=== PATIENT | male | born 1950 | race Caucasian/White ===

== ENCOUNTER → 2019-09-09 15:29 | Outpatient (BNVA) | payer MEDICARE, SELFPAY | PROVIDERS: Family Provider Nurse Practitioner Family; PCP Family Medicine; Visit Provider Nurse Practitioner Family | DX: M70.31 Other bursitis of elbow, right elbow (principal); E11.9 Type 2 diabetes mellitus without complications | CPT/HCPCS: 83036 ==

== ENCOUNTER → 2019-12-29 15:13 | Outpatient (BNVA) | payer MEDICARE, SELFPAY | PROVIDERS: PCP Family Medicine; Referring Provider Nurse Practitioner Family; Visit Provider Orthopaedic Surgery | DX: M25.521 Pain in right elbow (principal) | CPT/HCPCS: 73080 ==

== ENCOUNTER 2019-12-29 16:30 | Outpatient (CLI) | payer MEDICARE, SELFPAY | END 2019-12-29 16:31 | disposition home or self-care (01) | LOC: SPT 16:31 | PROVIDERS: PCP Family Medicine; Visit Provider Orthopaedic Surgery | DX: Z46.89 Encounter for fitting and adjustment of other specified devices (principal); G56.03 Carpal tunnel syndrome, bilateral upper limbs | CPT/HCPCS: L3908 ==

== ENCOUNTER 2020-04-05 10:32 | Outpatient (CLI) | payer MEDICARE, SELFPAY ==
--- NOTE | 2020-04-05 10:43 | MR_ITS ---
WS: [id number] MRI LEFT SHOULDER HISTORY: PAIN IN RIGHT SHOULDER COMPARISON: None available. TECHNIQUE: Multiplanar sequences of the shoulder joint are submitted. Marked bone and soft tissue hypertrophy at the AC joint. Osteophytes encroach upon the supraspinatus muscle. There is edema in the distal clavicle and adjacent acromion with osteophyte formation. Small amount of fluid in the subacromial and subdeltoid bursa. No os acromion. Biceps tendon is in normal p osition. Slightly high riding humeral head. Moderate tendinopathy in the mid to distal supraspinatus tendon. S mall insertion site tear of the infraspinatus tendon. No subscapularis tendon tear although there is tendinopathy. There is moderate narrowing of the coracohumeral interval. No muscle atrophy or edema. There is a small fluid collection or cyst in the subscapularis recess. Anterior superior labrum contains abnormal signal. Most significant abnormal signal extends to the an terior labrum. MR/MR shoulder LT wo con* [id number] IMPRESSION: 1. 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 2. Moderate tendinopathy subscapularis and supraspinatus tendons. 3. Small insertion site tear infraspinatus tendon. 4. Torn anterior superior labrum. 5. 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
== END 2020-04-05 10:33 | disposition home or self-care (01) ==
LOC: RADSHAW 10:41
PROVIDERS: PCP Nurse Practitioner Family; Visit Provider Nurse Practitioner Family
DX: M19.012 Primary osteoarthritis, left shoulder (principal); S46.012A Strain of muscle(s) and tendon(s) of the rotator cuff of left shoulder, initial encounter; S43.432A Superior glenoid labrum lesion of left shoulder, initial encounter; X58.XXXA Exposure to other specified factors, initial encounter
CPT/HCPCS: 73221

== ENCOUNTER → 2020-04-24 14:20 | Outpatient (BNVA) | payer MEDICARE, SELFPAY | PROVIDERS: PCP Nurse Practitioner Family; Referring Provider Nurse Practitioner Family; Visit Provider Orthopaedic Surgery | DX: M25.511 Pain in right shoulder (principal); M25.512 Pain in left shoulder; M75.02 Adhesive capsulitis of left shoulder | CPT/HCPCS: 73030 ==

== ENCOUNTER 2020-05-03 06:00 | Outpatient (RCR) | payer MEDICARE, SELFPAY | END 2020-05-17 23:00 | disposition home or self-care (01) | LOC: TPT 06:00 | PROVIDERS: PCP Nurse Practitioner Family; Referring Provider Orthopaedic Surgery; Visit Provider Orthopaedic Surgery | DX: M25.512 Pain in left shoulder (principal); M25.511 Pain in right shoulder; M75.02 Adhesive capsulitis of left shoulder | CPT/HCPCS: 97161 ==

== ENCOUNTER → 2020-06-06 12:49 | Outpatient (BNVA) | payer MEDICARE, SELFPAY | PROVIDERS: Family Provider Nurse Practitioner Family; Visit Provider Specialist | DX: G56.22 Lesion of ulnar nerve, left upper limb (principal); G62.9 Polyneuropathy, unspecified | CPT/HCPCS: G0463 ==

== ENCOUNTER → 2020-06-08 12:44 | Outpatient (BNVA) | payer MEDICARE, SELFPAY | PROVIDERS: Family Provider Nurse Practitioner Family; Visit Provider Nurse Practitioner Family | DX: I10 Essential (primary) hypertension (principal); E11.9 Type 2 diabetes mellitus without complications; E78.5 Hyperlipidemia, unspecified | CPT/HCPCS: 80053; 80061; 83036; 85025 ==

== ENCOUNTER → 2020-06-27 11:59 | Outpatient (BNVA) | payer MEDICARE, SELFPAY | PROVIDERS: Family Provider Nurse Practitioner Family; Visit Provider Nurse Practitioner Family | DX: R53.82 Chronic fatigue, unspecified (principal); R73.9 Hyperglycemia, unspecified; G47.33 Obstructive sleep apnea (adult) (pediatric); I10 Essential (primary) hypertension; Z68.34 Body mass index [BMI] 34.0-34.9, adult; F17.211 Nicotine dependence, cigarettes, in remission; Z71.89 Other specified counseling | CPT/HCPCS: 80053; 82306; 82607; 83036; 84443; 85025 ==

== ENCOUNTER → 2020-10-24 11:16 | Outpatient (BNVA) | payer MEDICARE, SELFPAY | PROVIDERS: Family Provider Nurse Practitioner Family; Visit Provider Nurse Practitioner Family | DX: M25.551 Pain in right hip (principal); M25.552 Pain in left hip; G62.9 Polyneuropathy, unspecified | CPT/HCPCS: 72100; 73523 ==

== ENCOUNTER 2020-11-01 06:00 | Outpatient (RCR) | payer MEDICARE, SELFPAY | END 2020-11-22 23:00 | disposition home or self-care (01) | LOC: TPT 06:00 | PROVIDERS: Family Provider Nurse Practitioner Family; PCP Nurse Practitioner Family; Referring Provider Nurse Practitioner Family; Visit Provider Nurse Practitioner Family | DX: M25.551 Pain in right hip (principal); M25.552 Pain in left hip; M54.5 Low back pain | CPT/HCPCS: 97110; 97161 ==

== ENCOUNTER → 2021-07-04 11:36 | Outpatient (BNVA) | payer MEDICARE, SELFPAY | PROVIDERS: Family Provider Nurse Practitioner Family; PCP Nurse Practitioner Family; Visit Provider Nurse Practitioner Family | DX: E11.9 Type 2 diabetes mellitus without complications (principal); G62.9 Polyneuropathy, unspecified; I10 Essential (primary) hypertension; Z12.5 Encounter for screening for malignant neoplasm of prostate; Z23 Encounter for immunization; M54.41 Lumbago with sciatica, right side; M54.42 Lumbago with sciatica, left side; G89.29 Other chronic pain; R59.0 Localized enlarged lymph nodes; G47.33 Obstructive sleep apnea (adult) (pediatric); E55.9 Vitamin D deficiency, unspecified | CPT/HCPCS: 80053; 80061; 82306; 82607; 83036; 83721; 84443; 85025; G0103 ==

== ENCOUNTER → 2021-07-17 14:24 | Outpatient (BNVA) | payer MEDICARE, SELFPAY | PROVIDERS: PCP Nurse Practitioner Family; Visit Provider Nurse Practitioner Family | DX: D72.819 Decreased white blood cell count, unspecified (principal) | CPT/HCPCS: 85025 ==

== ENCOUNTER 2021-07-18 14:51 | Outpatient (CLI) | payer MEDICARE, SELFPAY ==
--- NOTE | 2021-07-18 15:15 | MR_ITS ---
WS: [id number] MRI LUMBAR SPINE NONCONTRAST TECHNIQUE: Sagittal T1, T2 and STIR imaging. Axial T1 and T2 imaging. CLINICAL INFORMATION: M54.50 - Low back pain, unspecified COMPARISON: MRI 2016 FINDINGS: Mild lumbar curve. No acute compression. No high-grade central canal stenosis. Slight anterolisthesis L4 on L5. Congenital central canal stenosis contributes to spinal canal narrowing. L1-L2: Moderate left facet arthropathy impinges the left subarticular recess. Mild central canal sten osis. Moderate facet arthropathy. Mild left and no significant right foraminal narrowing. L2-L3: Mild annular bulging. Mild central canal stenosis. Moderate facet arthropathy. Mild left agnes inal narrowing. L3-L4: Mild annular bulging with mild central canal stenosis. Moderate facet arthropathy with ligamen xander flavum flavum hypertrophy. Mild right and no significant left foraminal narrowing. L4-L5: Slight anterolisthesis. Mild annular bulging with impingement on the subarticular recess bilat erally and traversing L5 nerve roots. Moderate to severe central canal stenosis. Moderate facet arthr opathy with ligamentum flavum flavum hypertrophy. Moderate left and mild right foraminal narrowing. I mpingement on the exiting left L4 nerve root. L5-S1: Shallow central protrusion with mild central canal stenosis. Slight impingement traversing S1 nerve roots bilaterally. Mild right greater than left foraminal narrowing. Mild central canal stenosis in the cervical spine at C2-C4 with slight indentation on the cervical co rd. MR/MR lumbar spine wo con* [id number] IMPRESSION:Congenital central canal stenosis contributes to spinal canal narrow ing 1. Severe central canal stenosis L4-5 due to disc bulging with facet arthropat hy and ligament flavum hypertrophy. Impingement traversing L5 nerve roots bilat erally. Moderate left and mild right foraminal narrowing. This appears progress ed since 2016. 2. Mild disc bulging and osteophytic ridging L5-S1 with slight impingement tra versing S1 nerve roots bilaterally. Mild right greater than left foraminal narr owing. 3. Mild central canal stenosis L2-3 and L3-4. 4. Prominent left facet arthropathy L1-2 impinges the left subarticular recess at this level with mild left foraminal narrowing. This is new since 2016. 5. Mild central canal stenosis in the cervical spine at C2-C4 with prominent p osterior longitudinal ligament and slight indentation on the cervical cord. Thi s can be followed up with cervical spine MRI.
== END 2021-07-18 14:52 | disposition home or self-care (01) ==
LOC: RADSHAW 14:52
PROVIDERS: PCP Nurse Practitioner Family; Visit Provider Nurse Practitioner Family
DX: M48.061 Spinal stenosis, lumbar region without neurogenic claudication (principal); M48.02 Spinal stenosis, cervical region; M47.816 Spondylosis without myelopathy or radiculopathy, lumbar region; M51.27 Other intervertebral disc displacement, lumbosacral region
CPT/HCPCS: 72148

== ENCOUNTER → 2021-08-09 13:20 | Outpatient (BNVA) | payer MEDICARE, SELFPAY | PROVIDERS: PCP Nurse Practitioner Family; Referring Provider Nurse Practitioner Family; Visit Provider Orthopaedic Surgery | DX: M54.41 Lumbago with sciatica, right side (principal); G89.29 Other chronic pain | CPT/HCPCS: 72110 ==

== ENCOUNTER → 2022-08-05 11:21 | Outpatient (BNVA) | payer MEDICARE, SELFPAY | PROVIDERS: PCP Nurse Practitioner Family; Visit Provider Nurse Practitioner Family | DX: M10.9 Gout, unspecified (principal); E11.9 Type 2 diabetes mellitus without complications; E55.9 Vitamin D deficiency, unspecified; L98.9 Disorder of the skin and subcutaneous tissue, unspecified; Z00.00 Encounter for general adult medical examination without abnormal findings; Z12.5 Encounter for screening for malignant neoplasm of prostate; I10 Essential (primary) hypertension; G47.33 Obstructive sleep apnea (adult) (pediatric) | CPT/HCPCS: 80053; 80061; 82043; 82306; 82607; 83036; 83721; 83735; 84443; 84550; 85025 ==

== ENCOUNTER → 2023-05-21 10:53 | Outpatient (BNVA) | payer MEDICARE, SELFPAY | PROVIDERS: PCP Nurse Practitioner Family; Visit Provider Nurse Practitioner Family | DX: L82.1 Other seborrheic keratosis (principal); D22.5 Melanocytic nevi of trunk; L57.8 Other skin changes due to chronic exposure to nonionizing radiation; Z85.820 Personal history of malignant melanoma of skin; L82.0 Inflamed seborrheic keratosis; L57.0 Actinic keratosis | CPT/HCPCS: 17000; 17110; 99213 ==

== ENCOUNTER → 2023-07-21 16:37 | Outpatient (BNVA) | payer MEDICARE, SELFPAY | PROVIDERS: PCP Nurse Practitioner Family; Visit Provider Nurse Practitioner Family | DX: E11.9 Type 2 diabetes mellitus without complications (principal); M10.9 Gout, unspecified; E55.9 Vitamin D deficiency, unspecified; M79.672 Pain in left foot; I10 Essential (primary) hypertension | CPT/HCPCS: 80053; 80061; 82306; 82607; 83036; 83721; 83735; 84443; 84550; 85025 ==

== ENCOUNTER → 2023-10-27 12:18 | Outpatient (BNVA) | payer MEDICARE, SELFPAY | PROVIDERS: PCP Nurse Practitioner Family; Visit Provider Nurse Practitioner Family | DX: M10.9 Gout, unspecified (principal); E78.5 Hyperlipidemia, unspecified; E55.9 Vitamin D deficiency, unspecified | CPT/HCPCS: 80061; 82306; 84550 ==

== ENCOUNTER → 2024-05-31 09:13 | Outpatient (BNVA) | payer MEDICARE, SELFPAY | PROVIDERS: PCP Nurse Practitioner Family; Visit Provider Nurse Practitioner Family | DX: I10 Essential (primary) hypertension (principal); E11.9 Type 2 diabetes mellitus without complications; E55.9 Vitamin D deficiency, unspecified | CPT/HCPCS: 80053; 80061; 82306; 83036; 84550; 85025 ==

== ENCOUNTER → 2024-09-02 14:05 | Outpatient (BNVA) | payer MEDICARE, SELFPAY | PROVIDERS: PCP Nurse Practitioner Family; Referring Provider Nurse Practitioner Family; Visit Provider Nurse Practitioner Family | DX: L24.9 Irritant contact dermatitis, unspecified cause (principal); L30.4 Erythema intertrigo; D23.71 Other benign neoplasm of skin of right lower limb, including hip; D48.5 Neoplasm of uncertain behavior of skin | CPT/HCPCS: 11102; 99214 ==

== ENCOUNTER 2025-02-03 12:19 | Outpatient (CLI) | payer MEDICARE, SELFPAY ==
--- NOTE | 2025-02-03 13:00 | MR_ITS ---
WS: [id number] MRI CERVICAL SPINE NONCONTRAST HISTORY: M54.2 - Cervicalgia COMPARISON: None available. Technique: Multiplanar, multisequence noncontrast imaging of the cervical spine. Straightening of the normal cervical lordosis. Complete fusion between the C5-6 and C6-7 vertebral bodies. No marrow edema or fracture. Increased T2 signal in the cervical cord at the C3 level. Lesser amount of increased signal extends above and below the C3 level. There is additional focal increased T2 signal at the C4-5 disc level. Cord is slightly narrowed and atrophy at the C3 level. Craniocervical junction, C1 and C2 relationship, odontoid process and soft tissues are normal. C2-C3: Lobulated central disc protrusion effacing CSF. Small bilateral foraminal osteophytes. Moderate central and mild foraminal stenosis. C3-C4: Contiguous low signal proceeds posterior to the C2-3 disc level posterior to C3. This may be a large ligamentous ossification. Diffuse annular disc bulging with effacement of CSF. Moderate central and bilateral foraminal stenosis. C4-C5: Disc osteophyte encroaching upon the ventral thecal sac. Central disc protrusion. Moderate bilateral facet arthritis. Large foraminal osteophytes. Severe central and bilateral foraminal stenosis. C5-C6: No stenosis. C6-C7: Mild foraminal narrowing predominantly due to facet disease and osteophytes. C7-T1: Bilateral foraminal osteophytes. Severe LEFT and moderate to severe RIGHT foraminal stenosis. Facet joint arthropathy encroaches upon the posterior LEFT thecal sac. T1-2: Marked ligamentum flavum and facet arthritis encroaching posteriorly upon the thecal sac. Mild stenosis centrally with moderate bilateral foraminal stenosis. Soft tissue mass following fat on all sequences in the posterior neck centered at the C3-4 level. Mass measures 3.8 x 5.3 cm. MR/MR cervical spin wo con* [id number] IMPRESSION: 1. Mild cord atrophy at the C3 level. 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 2. Multilevel areas of central and foraminal stenosis due to combination of di sc, osteophyte and facet arthritis. 3. Prior cervical fusion at C5-6 and C6-7. 4. Moderate central and mild foraminal stenosis at C2-3 due to disc and osteop hyte disease. 5. C3-4: Moderate central and bilateral foraminal stenosis. Low signal posteri or to C3 and C4 may be ossification site or calcification or disc protrusions. 6. C4-5: Severe central and bilateral foraminal stenosis. 7. C7-T1: Severe LEFT and moderate to severe RIGHT foraminal stenosis. 8. T1-2: Mild central stenosis with moderate bilateral foraminal stenosis.
== END 2025-02-03 12:20 | disposition home or self-care (01) ==
LOC: RAD 12:20
PROVIDERS: PCP Nurse Practitioner Family; Visit Provider Nurse Practitioner Family
DX: M48.02 Spinal stenosis, cervical region (principal); M25.78 Osteophyte, vertebrae; M43.22 Fusion of spine, cervical region; G89.29 Other chronic pain
CPT/HCPCS: 72141